=== PATIENT | female | born 1995 | race Hispanic/Latino ===

== ENCOUNTER 2018-01-14 21:48 | Emergency (ER) | payer SELFPAY ==
[2018-01-14 22:50] LABS: Urine Blood TRACE (NEG); Urine Glucose NEGATIVE (NEG); Urine Protein 2+ (NEG)
[2018-01-14 22:58] LABS: Absolute Lymphocytes (CBC) 2.3 K/uL (0.7-4.9); Absolute Monocytes 0.5 K/uL (0.1-1.3); Absolute Neutrophil 6.2 K/uL (1.8-8.0); Basophils % 0.7 % (0-1.3); Eosinophils % 1.2 % (0-4.4); Hematocrit 37.1 % (36.0-45.0); MCH 26.1 pg (27.0-35.0); MCV 79.8 fL (80-100); MPV 9.5 fL (7.6-11.3); Monocytes % 5.4 % (3.3-12.3); RBC Red Blood Cell Count 4.65 M/uL (3.86-4.86)
[2018-01-14] MEDS ORDERED: NA CHLORIDE 0.9% 1,000 ML ONE (23:04)
[2018-01-14 23:09] LABS: Glucose Level 111 mg/dL (65-120); Lipase 23 U/L (22-51)
[2018-01-14 23:15] LABS: ALT/SGPT 40 IU/L (10-60); AST/SGOT 62 IU/L (10-42); Albumin 4.4 g/dL (3.2-5.5); Alkaline Phosphatase 54 IU/L (42-121); BUN Blood Urea Nitrogen 11 mg/dL (6-20); Bilirubin Direct 0.1 mg/dL (0-0.2); Bilirubin Total 0.7 mg/dL (0.3-1.2); Protein, Total 7.5 g/dL (6.0-8.3)
[2018-01-14] MEDS ORDERED: KETOROLAC 30 MG/ML INJ ONE (23:24)
[2018-01-14] MEDS ORDERED: DICYCLOMINE HCL 10 MG CAP ONE (23:24)
[2018-01-14 23:30] LABS: Bicarbonate 27 mEq/L (21-31); Sodium Level 141 mEq/L (135-145)
[2018-01-14] MEDS ORDERED: KCL 20 MEQ/100 mL IVPB 20 MEQ/100 ML BAG IV ONE (23:44)
[2018-01-14] MEDS ORDERED: POTASSIUM CL SA 10 MEQ TAB PO ONE (23:44)
[2018-01-14 23:58] LABS: Urine Amorphous Sediment 2+ /HPF (NONE SEEN); Urine Bacteria <20 /HPF (<20); Urine Culture Reflex Order NOT NEEDED; Urine Mucus SLIGHT /HPF (NONE SEEN); Urine RBC <5 /HPF (NONE SEEN)
[2018-01-15] MEDS ORDERED: ONDANSETRON 4 MG/2 ML VIAL ONE (00:04)
[2018-01-15] MEDS ORDERED: NA CHLORIDE 0.9% 1,000 ML ONE (00:53)
--- NOTE | 2018-01-15 02:03 | EDPHYS ---
Physician Documentation [facility] Name: Lashell Lynn Age: 22 yrs Sex: Female : 1995 Arrival Date: 01/14/2018 Time: 21:49 Bed 16 Private MD: ED Physician Compa Phillip HPI: 01/14 22:51 This 22 yrs old Female presents to ER via Ambulatory with complaints of snw Epigastric Pain, Nausea. 22:51 This 22 yrs old Female presents to ER via Ambulatory with complaints of snw Epigastric Pain, Nausea. 22:51 The patient presents with abdominal distention in the epigastric area. Onset: The snw symptoms/episode began/occurred suddenly, at 21:00, and became persistent. The symptoms do not radiate. Associated signs and symptoms: Pertinent positives: nausea. The symptoms are described as constant. Severity of pain: At its worst the pain was moderate. The patient has experienced a previous episode, approximately 5 years ago. The patient has not recently seen a physician. 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 - Social history:: Smoking status: Patient/guardian denies using tobacco. ROS: 22:51 Constitutional: Negative for fever, chills, and weight loss, Eyes: Negative for injury, snw pain, redness, and discharge, ENT: Negative for injury, pain, and discharge, Neck: Negative for injury, pain, and swelling, Cardiovascular: Negative for chest pain, palpitations, and edema, Respiratory: Negative for shortness of breath, cough, wheezing, and pleuritic chest pain, Back: Negative for injury and pain, : Negative for injury, bleeding, discharge, and swelling, MS/Extremity: Negative for injury and deformity, Skin: Negative for injury, rash, and discoloration, Neuro: Negative for headache, weakness, numbness, tingling, and seizure. 22:51 Abdomen/GI: Positive for abdominal pain, nausea. Exam: 22:49 Constitutional: This is a well developed, well nourished patient who is awake, alert, snw and in no acute distress. Head/Face: Normocephalic, atraumatic. Eyes: Pupils equal round and reactive to light, extra-ocular motions intact. Lids and lashes normal. Conjunctiva and sclera are non-icteric and not injected. Cornea within normal limits. Periorbital areas with no swelling, redness, or edema. ENT: Nares patent. No nasal discharge, no septal abnormalities noted. Tympanic membranes are normal and external auditory canals are clear. Oropharynx with no redness, swelling, or masses, exudates, or evidence of obstruction, uvula midline. Mucous membranes moist. Neck: Trachea midline, no thyromegaly or masses palpated, and no cervical lymphadenopathy. Supple, full range of motion without nuchal rigidity, or vertebral point tenderness. No Meningismus. Chest/axilla: Normal chest wall appearance and motion. Nontender with no deformity. No lesions are appreciated. Cardiovascular: Regular rate and rhythm with a normal S1 and S2. No gallops, murmurs, or rubs. Normal PMI, no JVD. No pulse deficits. Respiratory: Lungs have equal breath sounds bilaterally, clear to auscultation and percussion. No rales, rhonchi or wheezes noted. No increased work of breathing, no retractions or nasal flaring. Back: No spinal tenderness. No costovertebral tenderness. Full range of motion. Skin: Warm, dry with normal turgor. Normal color with no rashes, no lesions, and no evidence of cellulitis. MS/ Extremity: Pulses equal, no cyanosis. Neurovascular intact. Full, normal range of motion. Neuro: Awake and alert, GCS 15, oriented to person, place, time, and situation. Cranial nerves II-XII grossly intact. Motor strength 5/5 in all extremities. Sensory grossly intact. Cerebellar exam normal. Normal gait. 22:49 Abdomen/GI: Inspection: abdomen appears normal, Bowel sounds: normal, Palpation: mild abdominal tenderness, in the right upper quadrant, Indicators: Jarquin's sign is negative. Vital Signs: 22:06 BP 107 / 61; Pulse 65; Resp 18; Temp 97.4; Pulse Ox 100% on R/A; Weight 73.03 kg (R); aa1 Height 5 ft. 3 in. (160.02 cm); Pain 10/10; 23:54 BP 102 / 69; Pulse 65; Resp 18; Pulse Ox 100% on R/A; tl2 01/15 00:43 BP 108 / 76; Pulse 69; Resp 18; Pulse Ox 100% on R/A; tl2 01:36 BP 113 / 75; Pulse 76; Resp 18; Pulse Ox 100% on R/A; tl2 02:28 BP 113 / 80; Pulse 72; Resp 18; Pulse Ox 100% on R/A; tl2 01/14 22:06 Body Mass Index 28.52 (73.03 kg, 160.02 cm) aa1 MDM: 01/14 22:36 Patient medically screened. snw 01/15 02:04 Data reviewed: vital signs, nurses notes. Data interpreted: Pulse oximetry: on room air snw is 100 %. Interpretation: normal. Counseling: I had a detailed discussion with the patient and/or guardian regarding: the historical points, exam findings, and any diagnostic results supporting the discharge/admit diagnosis, lab results, radiology results, the need for outpatient follow up, to return to the emergency department if symptoms worsen or persist or if there are any questions or concerns that arise at home. Special discussion: Based on the patient's Hx, exam, and Dx evaluation, there is no indication for emergent surgery or inpatient Tx. It is understood by the patient/guardian that if the Sx's persist or worsen they need to return immediately for re-evaluation. Based on the history and exam findings, there is no indication for further emergent testing or inpatient evaluation. I discussed with the patient/guardian the need to see the general surgeon for further evaluation of the symptoms. I discussed with the patient/guardian the need to see the primary care provider for further evaluation of the symptoms. 01/14 22:43 Order name: Urine Dipstick--Ancillary (enter results); Complete Time: 22:56 rg2 01/14 22:43 Order name: Urine --Ancillary (enter results); Complete Time: 22:56 rg2 01/14 22:45 Order name: Basic Metabolic Panel; Complete Time: 23:37 snw 01/14 22:45 Order name: CBC with Diff; Complete Time: 23:15 snw 01/14 22:45 Order name: Hepatic Function; Complete Time: 23:37 snw 01/14 22:45 Order name: Lipase; Complete Time: 23:37 snw 01/14 22:45 Order name: Urine Microscopic Only; Complete Time: 00:02 snw 01/14 22:45 Order name: US Abdomen Limited snw 01/14 22:45 Order name: IV Saline Lock; Complete Time: 22:48 snw 01/14 22:45 Order name: Labs collected and sent; Complete Time: 22:48 snw 01/14 22:45 Order name: Urine Dipstick-Ancillary (obtain specimen); Complete Time: 22:48 snw Administered Medications: 01/14 23:34 Drug: TORadol 30 mg Route: IVP; Site: right antecubital; tl2 01/15 00:00 Follow up: Response: No adverse reaction; Pain is decreased tl2 01/14 23:34 Drug: Bentyl 20 mg Route: PO; tl2 01/15 00:00 Follow up: Response: No adverse reaction; Pain is decreased tl2 01/14 23:35 Drug: NS 0.9% 1000 ml Route: IV; Rate: 1 bolus; Site: right antecubital; tl2 01/15 02:29 Follow up: IV Status: Completed infusion; IV Intake: 1000ml tl2 01/14 23:54 Drug: Potassium Chloride 40 mEq Route: PO; tl2 01/15 02:29 Follow up: Response: No adverse reaction tl2 01/14 23:55 Drug: Potassium Chloride 20 mEq Route: IV; Rate: calculated rate; Site: right tl2 antecubital; 01/15 02:30 Follow up: IV Status: Completed infusion tl2 00:12 Drug: Zofran 4 mg Route: IVP; Site: right antecubital; tl2 02:30 Follow up: Response: No adverse reaction; Nausea is decreased tl2 Disposition: 19:22 Co-signature as Attending Physician, Compa Phillip MD. Disposition: 01/15/18 02:02 Discharged to Home. Impression: Cholelithiasis, Hypokalemia. - Condition is Stable. - Discharge Instructions: Fat and Cholesterol Restricted Diet, Potassium Content of Foods, Cholelithiasis, Hypokalemia. - Prescriptions for Bentyl 20 mg Oral Tablet - take 2 tablet by ORAL route every 6 hours As needed; 40 tablet. promethazine 25 mg Oral Tablet - take 1 tablet by ORAL route every 6 hours As needed; 20 tablet. - Medication Reconciliation Form, Thank You Letter, Antibiotic Education, Prescription Opioid Use, Work release form form. - Follow up: Private Physician; When: 2 - 3 days; Reason: Recheck today's complaints, Continuance of care, Re-evaluation by your physician. Follow up: Emergency Department; When: As needed; Reason: Worsening of condition. Signatures: Dispatcher [employer] EDMS Medina Pinto RN RN aa1 Stephanie Paula, PORSCHE-C WIRE WINDING MACHINE OPERATOR-Csnw Salma Gates RN RN tl2 Compa Phillip MD MD gs Corrections: (The following items were deleted from the chart) 02:30 02:02 01/15/2018 02:02 Discharged to Home. Impression: Cholelithiasis; Hypokalemia. tl2 Condition is Stable. Forms are Medication Reconciliation Form, Thank You Letter, Antibiotic Education, Prescription Opioid Use. Follow up: Private Physician; When: 2 - 3 days; Reason: Recheck today's complaints, Continuance of care, Re-evaluation by your physician. Follow up: Emergency Department; When: As needed; Reason: Worsening of condition. snw
--- NOTE | 2018-01-15 02:03 | ER ---
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 Reports having these symptoms before and was diagnosed with gallstones. Transition of care: patient was not received from another setting of care. Onset of symptoms was January 14, 2018. Initial Sepsis Screen: Does the patient meet any 2 criteria? No. Patient's initial sepsis screen is negative. Does the patient have a suspected source of infection? Yes: Acute abdominal pain. Care prior to arrival: None. 22:05 Method Of Arrival: Ambulatory aa1 22:05 Acuity: YONI 3 aa1 Triage Assessment: 22:06 General: Appears in no apparent distress. comfortable, Behavior is calm, cooperative, aa1 appropriate for age. 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 - Social history:: Smoking status: Patient/guardian denies using tobacco. Screenin:43 Abuse screen: Denies threats or abuse. Nutritional screening: No deficits noted. tl2 Tuberculosis screening: No symptoms or risk factors identified. Fall Risk None identified. Assessment: 22:43 General: Appears in no apparent distress. uncomfortable, Behavior is calm, cooperative, tl2 appropriate for age. Pain: Complains of pain in epigastric area Pain does not radiate. Pain currently is 8 out of 10 on a pain scale. Neuro: Level of Consciousness is awake, alert, obeys commands, Oriented to person, place, time, situation. Neuro: Reports dizziness. Cardiovascular: Denies chest pain. Respiratory: Airway is patent Respiratory effort is even, unlabored, Respiratory pattern is regular, symmetrical. GI: Abdomen is non-distended, Abd is soft and non tender. : No signs and/or symptoms were reported regarding the genitourinary system. Derm: Skin is pink, warm \T\ dry. 01/15 00:11 Reassessment: Pt c/o burning in her arm due to potassium infusion. Fluids increased and tl2 potassium slowed. Pt became nauseated and vomited. EARLY CHILDHOOD DIRECTOR notified, new order see NOV. 00:43 Reassessment: Patient appears in no apparent distress at this time. Patient and/or tl2 family updated on plan of care and expected duration. Pain level reassessed. Patient is alert, oriented x 3, equal unlabored respirations, skin warm/dry/pink. 01:36 Reassessment: Patient appears in no apparent distress at this time. Patient and/or tl2 family updated on plan of care and expected duration. Pain level reassessed. Patient is alert, oriented x 3, equal unlabored respirations, skin warm/dry/pink. awaiting further orders. 02:28 Reassessment: Patient appears in no apparent distress at this time. Patient and/or tl2 family updated on plan of care and expected duration. Pain level reassessed. Patient is alert, oriented x 3, equal unlabored respirations, skin warm/dry/pink. Pt verbalized understanding of discharge instructions, need for follow up and prescription usage Patient states feeling better. Vital Signs: 01/14 22:06 BP 107 / 61; Pulse 65; Resp 18; Temp 97.4; Pulse Ox 100% on R/A; Weight 73.03 kg (R); aa1 Height 5 ft. 3 in. (160.02 cm); Pain 10/10; 23:54 BP 102 / 69; Pulse 65; Resp 18; Pulse Ox 100% on R/A; tl2 01/15 00:43 BP 108 / 76; Pulse 69; Resp 18; Pulse Ox 100% on R/A; tl2 01:36 BP 113 / 75; Pulse 76; Resp 18; Pulse Ox 100% on R/A; tl2 02:28 BP 113 / 80; Pulse 72; Resp 18; Pulse Ox 100% on R/A; tl2 01/14 22:06 Body Mass Index 28.52 (73.03 kg, 160.02 cm) aa1 ED Course: 01/14 21:49 Patient arrived in ED. am2 22:06 Triage completed. aa1 22:06 Arm band placed on right wrist. Patient placed in waiting room, Patient notified of aa1 wait time. 22:35 Stephanie Paula FNP-C [facility] snw 22:35 Compa Phillip MD is Attending Physician. snw 22:43 Salma Gates, KATHLEEN is Primary Nurse. tl2 22:43 Patient has correct armband on for positive identification. Bed in low position. Call tl2 light in reach. Side rails up X 1. 22:43 Inserted saline lock: 20 gauge in right antecubital area, using aseptic technique. tl2 Blood collected. 23:07 Ultrasound completed. Patient tolerated well. Notified Primary Nurse . cy 23:07 US Abdomen Limited In Process Unspecified. EDMS 01/15 02:28 No provider procedures requiring assistance completed. IV discontinued, intact, tl2 bleeding controlled, No redness/swelling at site. Pressure dressing applied. Administered Medications: 01/14 23:34 Drug: TORadol 30 mg Route: IVP; Site: right antecubital; tl2 01/15 00:00 Follow up: Response: No adverse reaction; Pain is decreased tl2 01/14 23:34 Drug: Bentyl 20 mg Route: PO; tl2 01/15 00:00 Follow up: Response: No adverse reaction; Pain is decreased tl2 01/14 23:35 Drug: NS 0.9% 1000 ml Route: IV; Rate: 1 bolus; Site: right antecubital; tl2 01/15 02:29 Follow up: IV Status: Completed infusion; IV Intake: 1000ml tl2 01/14 23:54 Drug: Potassium Chloride 40 mEq Route: PO; tl2 01/15 02:29 Follow up: Response: No adverse reaction tl2 01/14 23:55 Drug: Potassium Chloride 20 mEq Route: IV; Rate: calculated rate; Site: right tl2 antecubital; 01/15 02:30 Follow up: IV Status: Completed infusion tl2 00:12 Drug: Zofran 4 mg Route: IVP; Site: right antecubital; tl2 02:30 Follow up: Response: No adverse reaction; Nausea is decreased tl2 Intake: 02:29 IV: 1000ml; Total: 1000ml. tl2 Outcome: 02:02 Discharge ordered by . snw 02:28 Discharged to home ambulatory, with family. tl2 02:28 Condition: stable 02:28 Discharge instructions given to patient, family, Instructed on discharge instructions, follow up and referral plans. medication usage, Demonstrated understanding of instructions, follow-up care, medications, Prescriptions given X 2. 02:30 Patient left the ED. tl2 Signatures: Dispatcher [employer] EDMedina Villa RN RN aa1 Stephanie Paula, SPRING COILING MACHINE SETTER-C SPRING COILING MACHINE SETTER-Csnw Salma Gates RN RN tl2 Anitra Gupta Chheannith
--- NOTE | 2018-01-15 08:50 | RAD REPORT ---
EXAM DESCRIPTION: US - Abdomen Exam Limited - 01/14/2018 11:07 pm CLINICAL HISTORY: Abdominal pain. COMPARISON: None. FINDINGS: The gallbladder wall is not thickened. A gallstone is not seen. The common bile duct measures 6 millimeters. IMPRESSION: Borderline dilatation of the common bile duct.
== END 2018-01-15 02:30 | disposition home or self-care (01) ==
LOC: ER 21:48
DX: K80.20 Calculus of gallbladder without cholecystitis without obstruction (principal); E87.6 Hypokalemia
CPT/HCPCS: 36415; 76705; 80048; 80076; 81003; 81015; 81025; 83690; 85025; 96365; 96366; 96375; 99284; J2405; J7030